=== PATIENT | male | born 1980 | race Caucasian/White ===

== ENCOUNTER 2019-10-22 00:16 | Emergency (ER) | payer BC ==
[~2019-10-22] VITALS: Ht 182.9 cm; Wt 142.9 kg
[~2019-10-22 00:16] MED LIST: ACETAMINOPHEN-1 EAC1 PO; BACTRIM DS TAB1 EACH PO; BACTROBAN CREAM30 G1 TOP; BACTROBAN NASAL1 GM NASAL; KEFLEX500 M1 PO; NYSTATIN1 EAC9 TOP; ONDANSETRON HCL4 M2 PO; PROTONIX 20 MG20 M1 PO
[2019-10-22 01:03] LABS: HEMATOCRIT 44.9 % (42.0-52.0); HEMOGLOBIN 15.6 gm/dL (14.0-18.0); MCH 30.9 pg (26.0-34.0); MCHC 34.7 g/dL (28.0-37.0); NUCLEATED RBCS 0 /100WBC; PLATELET COUNT* 222 thou/uL (150-400); RBC 5.04 mil/uL (4.50-6.00); RDW-CV 12.5 % (10.5-14.5); WBC 12.5 thou/uL (4.0-11.0)
[2019-10-22 01:08] LABS: CALCIUM 8.7 mg/dL (8.5-10.1); CREATININE 1.3 mg/dL (0.6-1.3); POTASSIUM 3.7 mmol/L (3.5-5.1)
[2019-10-22 01:12] LABS: ALBUMIN 3.7 g/dL (3.4-5.0); TOTAL BILIRUBIN 1.5 mg/dL (<0.1-1.0); TOTAL PROTEIN 7.3 g/dL (6.4-8.2)
[2019-10-22 01:44] LABS: ABSOLUTE LYMPHOCYTES 0.5 thou/uL (0.8-5.3); ABSOLUTE MONOCYTES 0.4 thou/uL (0.0-1.2); ABSOLUTE NEUTROPHILS 11.6 thou/uL (1.6-8.1)
[2019-10-22 01:45] LABS: PLATELET ESTIMATE ADEQUATE
[2019-10-22] MEDS ORDERED: HYDROCODON-ACE1 EAC7 PO (02:11)
[2019-10-22] MEDS ORDERED: IBUPROFEN 800800 MG PO (02:11)
[2019-10-22] MEDS ORDERED: DOXYCYCLINE 10100 MG PO (02:11)
[2019-10-22 03:25] VITALS: BP 129/82
== END 2019-10-22 03:28 | disposition still patient (30) ==
LOC: M.ERS 00:16
PROVIDERS: Personal Emergency Response Attendant
DX: L03.116 Cellulitis of left lower limb (principal); R50.9 Fever, unspecified

== ENCOUNTER 2019-10-25 12:43 | Inpatient (IN) | payer BC ==
[~2019-10-25] VITALS: Ht 182.9 cm; Wt 145.1 kg
[~2019-10-25 12:43] MED LIST changes: +DOXYCYCLINE 10100 MG PO; +HYDROCODON-ACE1 EAC7 PO; +IBUPROFEN 800800 MG PO
[2019-10-25 12:54] VITALS: BP 143/72
[2019-10-25] MEDS ORDERED: NEXIUM 40 MG CA40 M1 PO (12:57)
[2019-10-25 13:33] LABS: ABSOLUTE EOSINOPHILS 0.1 thou/uL (0.0-0.7); ABSOLUTE LYMPHOCYTES 1.7 thou/uL (0.8-5.3); ABSOLUTE MONOCYTES 0.3 thou/uL (0.0-1.2); ABSOLUTE NEUTROPHILS 1.9 thou/uL (1.6-8.1); BASOPHILS 0.6 %; EOSINOPHILS 1.6 %; HEMATOCRIT 45.5 % (42.0-52.0); HEMOGLOBIN 16.2 gm/dL (14.0-18.0); LYMPHOCYTES 41.6 %; MCH 31.7 pg (26.0-34.0); MCHC 35.7 g/dL (28.0-37.0); MCV 88.7 fL (80.0-100.0); MONOCYTES 7.9 %; MPV 8.9 fl. (7.2-11.1); NUCLEATED RBCS 0 /100WBC; PLATELET COUNT* 233 thou/uL (150-400); POLYS 48.3 %; RBC 5.12 mil/uL (4.50-6.00); RDW-CV 12.7 % (10.5-14.5)
[2019-10-25 13:40] LABS: CALCIUM 8.9 mg/dL (8.5-10.1); CREATININE 1.1 mg/dL (0.6-1.3); POTASSIUM 3.4 mmol/L (3.5-5.1)
[2019-10-25 13:45] LABS: ALBUMIN 3.5 g/dL (3.4-5.0); TOTAL BILIRUBIN 0.8 mg/dL (<0.1-1.0); TOTAL PROTEIN 7.8 g/dL (6.4-8.2)
[2019-10-25 15:11] VITALS: BP 142/69
[2019-10-25 15:30] VITALS: BP 119/70
--- NOTE | 2019-10-25 17:18 | NUR ---
PATIENT ARRIVED FROM ER THIS AFTERNOON. HISTORY, ASSESSMENT AND VITALS COMPLETED AND DOCUMENTED. PATIENT HAS CELLULITIS TO LEFT LOWER EXTREMITY. PATIENT HAS COMPLAINTS OF CRAMPING PAIN WHEN AMBULATING, DENIES NEED FOR MEDICATION. PATIENT DENIES ANY NEEDS AT THIS TIME. CALL LIGHT WITHIN REACH.
[2019-10-26 03:36] VITALS: BP 110/61
[2019-10-26 04:04] LABS: ABSOLUTE EOSINOPHILS 0.1 thou/uL (0.0-0.7); ABSOLUTE LYMPHOCYTES 1.8 thou/uL (0.8-5.3); ABSOLUTE MONOCYTES 0.4 thou/uL (0.0-1.2); ABSOLUTE NEUTROPHILS 2.3 thou/uL (1.6-8.1); BASOPHILS 0.7 %; EOSINOPHILS 2.7 %; HEMATOCRIT 38.6 % (42.0-52.0); LYMPHOCYTES 39.5 %; MCH 31.6 pg (26.0-34.0); MCHC 35.6 g/dL (28.0-37.0); MCV 88.8 fL (80.0-100.0); MPV 8.8 fl. (7.2-11.1); NUCLEATED RBCS 0 /100WBC; PLATELET COUNT* 214 thou/uL (150-400); POLYS 49.1 %; RBC 4.34 mil/uL (4.50-6.00); RDW-CV 12.7 % (10.5-14.5); WBC 4.7 thou/uL (4.0-11.0)
[2019-10-26 04:18] LABS: CALCIUM 7.9 mg/dL (8.5-10.1); CREATININE 0.9 mg/dL (0.6-1.3); POTASSIUM 3.5 mmol/L (3.5-5.1)
[2019-10-26 04:20] LABS: HEMOGLOBIN 13.7 gm/dL (14.0-18.0)
--- NOTE | 2019-10-26 05:20 | NUR ---
PT ALERT AND ORIENTED X4. CELLULITIS TO LLE. VANCOMYCIN GIVEN PER DEC. PT C/O PAIN IN LLE WHEN AMBULATING. CALL LIGHT AND FREQUENTLY USED ITEMS IN REACH. BED ALARM ON FOR SAFETY. HOURLY ROUNDING IN PROGRESS, WILL CONTINUE TO MONITOR.
[2019-10-26 07:35] VITALS: BP 120/72
[2019-10-26 17:10] VITALS: BP 117/62
--- NOTE | 2019-10-26 18:47 | NUR ---
PATIENT RESTING IN RECLINER. PATIENT IS UP AD STEFANIA IN ROOM. PATIENT DENIES ANY NEED FOR PAIN MEDICATION. DOUBLE LAYER TUBIGRIP APPLIED PER DR FRANCIS. PATIENT HAS GOOD APPETITE. PATIENT DENIES ANY NEEDS AT THIS TIME. CALL LIGHT WITHIN REACH.
[2019-10-27] VITALS: BP 116/72
--- NOTE | 2019-10-27 05:23 | NUR ---
PATIENT SLEPT WELL DURING THE NIGHT. PT UP AD STEFANIA TO THE BATHROOM. PT DENIES PAIN/NAUSEA. PT WITH ANTIBIOTICS INFUSING PER DR ORDER. PT WITH TUBIGRIP ON LT LOWER EXTREMITY. FREQUENTLY USED ITEMS AND CALL LIGHT WITHIN REACH. SIDERAILS UPX2. WILL CONTINUE TO MONITOR.
--- NOTE | 2019-10-27 07:20 | CON ---
[address] [address] CONSULTATION Name: LAURAFAN PACHECO Room: [address] IN M.R.#: [id number] Admission: 10/25/19 Attend Phys: Jc Hernandez MD Discharge: Date of : 82 Report #: [id number] THIS REPORT FOR: //name// CC: Jc Hernandez [facility] DATE OF SERVICE: 10/26/2019 INFECTIOUS DISEASE CONSULTATION ATTENDING PHYSICIAN: Jc Hernandez MD REASON FOR EVALUATION: Left lower extremity inflammatory eruption, likely multifactorial including a component of skin and soft tissue infection with cellulitis. HISTORY OF PRESENT ILLNESS: Chart reviewed, the patient examined. A 39-year-old male without significant medical history, although suspected venous stasis insufficiency of lower extremities, who noted onset of inflammatory rash with associated pain, left lower extremity, previous 3-4 days, had been evaluated as an outpatient, placed on doxycycline and felt like it was improving, had a negative venous Doppler of the lower extremity. Did have some chills at the onset, mild headaches. Denies significant pulmonary- or gastrointestinal-related complaints. ALLERGIES: PENICILLINS. CURRENT MEDICINES: Include pantoprazole, vancomycin, enoxaparin, fentanyl, hydralazine, ondansetron as needed. PAST MEDICAL HISTORY: Admits to reflux, previous history of lower extremity swelling, right ankle fracture. SOCIAL HISTORY: Nonsmoker. No ethanol. FAMILY HISTORY: Noncontributory. REVIEW OF SYSTEMS: Otherwise, unremarkable 10-point review of systems with exception of the above. PHYSICAL EXAMINATION: GENERAL: Alert, cooperative, appropriate. He is well nourished. He has [id number] distress. VITAL SIGNS: T-max overnight 100.8, more recently 98.2; pulse 74, respirations 16; blood pressure 120/72. SKIN: Warm, [place] [address] CONSULTATION Name: FAN SANCHEZ Room: [address]#: [id number] Admission: 10/25/19 Attend Phys: Jc Hernandez MD Discharge: Date of : 82 Report #: [id number] HEENT: Normocephalic. Extraocular muscles are intact. NECK: Supple. LUNGS: Clear to auscultation bilaterally. HEART: Regular. I do not appreciate a murmur. ABDOMEN: Obese, soft, nontender. EXTREMITIES: Bilateral lower extremities have clear edema. There are changes suggesting chronic venous stasis insufficiency with some underlying dermatitis as well. There is a painful erythematous-type eruption, most notable dependent area on the calf posteriorly. There are no bullous lesions, no ulcers at this point. GENITOURINARY AND RECTAL: Deferred. LABORATORY DATA: Blood cultures sterile thus far. CBC: White count of 4.0, H and H 16.2 and 45.5, platelets of 233. Electrolytes: Sodium 142, potassium 3.4, chloride 106, bicarbonate is 28, anion gap of 8, BUN and creatinine 16 and 1.1, glucose of 124. LFTs unremarkable. Albumin of 3.5, total protein 7.8, estimated GFR of 75. CRP of 95.7. Lactic acid 1.3 on admission. Blood cultures are sterile thus far. ASSESSMENT AND PLAN: Left lower extremity inflammatory eruption, component of skin and soft tissue infection with cellulitis. We will continue the vancomycin as prescribed, see how he does clinically. I certainly encouraged him to elevate while in bed supine. Also, we will try to initiate some compressive therapy, see how he does clinically over the next 24-48 hours, and likely transition to oral antibiotics prior to discharge. <ELECTRONICALLY SIGNED> By: Yobany Wyman MD 10/27/19 0720 [id number] Wyman MD /nt
[2019-10-27 08:09] VITALS: BP 124/75
--- NOTE | 2019-10-27 12:58 | NUR ---
Nutrition: Pt admitted with cellulitis on LLE. Regular diet ordered. Labs: BG 99, albumin 3.5. Wt: 320#. Assessed for high BMI. Unsure of pt's po intake. Please encourage good meal intake and good protein intake. Recommend MVI. No other nutrition concerns at this time. Mild risk.
[2019-10-27 15:30] VITALS: BP 130/82
--- NOTE | 2019-10-27 15:30 | NUR ---
SW met with pt to complete initial assessment, introduce self, and SW role. Pt alert, oriented, pleasant. Pt lives at home with . Pt is independent and does not anticipate any dc needs at this time. Pt said he thinks he should be able to dc tomorrow and that he was told he would change to oral abx at dc.
--- NOTE | 2019-10-27 18:09 | NUR ---
PATIENT AWAKE IN CHAIR. PATIENT AMBULATED IN ROOM AND TO CHAIR THROUGHOUT SHIFT. ALL SAFETY MEASURES MAINTAINED. PATIENT DENIES FURTHER NEEDS AT THIS TIME.
[2019-10-27 22:00] VITALS: BP 114/70
--- NOTE | 2019-10-28 06:16 | NUR ---
PATIENT SLEPT MOST OF THE NIGHT. IV REMAINS SALINE LOCKED. IV VANC WAS GIVEN ORDERED. CELLULITIS TO LEFT LOWER LEG CONTINUES TO IMPROVE. PATIENT IS HOPING TO GO HOME TODAY. WILL CONTINUE TO MONITOR.
[2019-10-28 07:40] VITALS: BP 105/55
[2019-10-28] MEDS ORDERED: MINOCYCLINE HC100 M2 PO (10:40)
[2019-10-28] MEDS ORDERED: NORCO 5-325 TA1 EAC1 PO (12:00)
[2019-10-28 12:39] VITALS: BP 105/55
--- NOTE | 2019-10-28 13:38 | NUR ---
1300 PATIENT AMBULATING IN ROOM. ALL SAFETY MEASURES MAINTAINED. DISCHARGE PAPERWORK REVIEWED WITH PATIENT AND PATIENT'S . PATIENT AND PATIENT'S DENY FURTHER NEEDS OR QUESTIONS. DISCHARGE PAPERWORK AND PRESCRIPTIONS GIVEN TO PATIENT. CONFIRMED WITH DR. FRANCIS PATIENT MAY DISCHARGE HOME TODAY.
== END 2019-10-28 13:10 | disposition home or self-care (01) | DRG 603 ==
LOC: M.ERS 12:43 → M.TBA-ER 13:09 → M.3W 15:35
PROVIDERS: Emergency Medicine; ADMIT Internal Medicine
DX: L03.116 Cellulitis of left lower limb (principal); Z88.0 Allergy status to penicillin; K21.9 Gastro-esophageal reflux disease without esophagitis; Z87.81 Personal history of (healed) traumatic fracture; Z23 Encounter for immunization; Z79.899 Other long term (current) drug therapy

== ENCOUNTER 2020-05-01 19:01 | Emergency (ER) | payer BC ==
[~2020-05-01] VITALS: Ht 182.9 cm; Wt 86.2 kg
[~2020-05-01 19:01] MED LIST changes: +MINOCYCLINE HC100 M2 PO; +NEXIUM 40 MG CA40 M1 PO; +NORCO 5-325 TA1 EAC1 PO
[2020-05-01 20:03] LABS: ABSOLUTE BASOPHILS 0.1 thou/uL (0.0-0.2); ABSOLUTE EOSINOPHILS 0.1 thou/uL (0.0-0.7); ABSOLUTE LYMPHOCYTES 2.5 thou/uL (0.8-5.3); ABSOLUTE MONOCYTES 0.5 thou/uL (0.0-1.2); ABSOLUTE NEUTROPHILS 6.4 thou/uL (1.6-8.1); BASOPHILS 0.8 %; EOSINOPHILS 1.3 %; HEMATOCRIT 45.3 % (42.0-52.0); HEMOGLOBIN 15.8 gm/dL (14.0-18.0); MCH 31.6 pg (26.0-34.0); MCHC 34.9 g/dL (28.0-37.0); MCV 90.4 fL (80.0-100.0); MONOCYTES 5.3 %; MPV 8.6 fl. (7.2-11.1); NUCLEATED RBCS 0 /100WBC; PLATELET COUNT* 283 thou/uL (150-400); POLYS 66.6 %; RBC 5.01 mil/uL (4.50-6.00); RDW-CV 12.7 % (10.5-14.5); WBC 9.7 thou/uL (4.0-11.0)
[2020-05-01 20:08] LABS: CALCIUM 8.9 mg/dL (8.5-10.1); CREATININE 1.2 mg/dL (0.6-1.3); POTASSIUM 3.8 mmol/L (3.5-5.1)
[2020-05-01] MEDS ORDERED: HYDROCODON-ACE1 EAC8 PO (20:23)
[2020-05-01] MEDS ORDERED: CLEOCIN HCL300 MG PO (20:23)
[2020-05-01 20:33] VITALS: BP 106/79
== END 2020-05-01 20:34 | disposition home or self-care (01) ==
LOC: M.ERS 19:01
PROVIDERS: Emergency Medicine
DX: L03.311 Cellulitis of abdominal wall (principal); K21.9 Gastro-esophageal reflux disease without esophagitis; Z88.0 Allergy status to penicillin

== ENCOUNTER 2020-09-18 19:04 | Emergency (ER) | payer BC ==
[~2020-09-18] VITALS: Ht 182.9 cm; Wt 136.1 kg
[~2020-09-18 19:04] MED LIST changes: +CLEOCIN HCL300 MG PO; +HYDROCODON-ACE1 EAC8 PO
[2020-09-18] MEDS ORDERED: CILOXAN5 ML OPHTHALMIC (19:46)
[2020-09-18] MEDS ORDERED: HYDROCODON-ACE1 EAC8 PO (19:46)
[2020-09-18 19:59] VITALS: BP 143/72
== END 2020-09-18 20:00 | disposition home or self-care (01) ==
LOC: M.ERS 19:04
DX: S05.01XA Injury of conjunctiva and corneal abrasion without foreign body, right eye, initial encounter (principal); Z88.0 Allergy status to penicillin; X58.XXXA Exposure to other specified factors, initial encounter; Y93.9 Activity, unspecified; Y92.89 Other specified places as the place of occurrence of the external cause; Y99.8 Other external cause status

== ENCOUNTER 2021-01-04 21:21 | Inpatient (IN) | payer BC ==
[~2021-01-04] VITALS: Ht 182.9 cm; Wt 142.4 kg
[~2021-01-04 21:21] MED LIST changes: +CILOXAN5 ML OPHTHALMIC
[2021-01-04 21:36] VITALS: BP 116/71
[2021-01-04] MEDS ORDERED: ADIPEX-P37.5 MG PO ×2 (21:39)
[2021-01-04] MEDS ORDERED: NEXIUM40 MG PO (21:40)
[2021-01-04 22:44] LABS: HEMOGLOBIN 15.2 gm/dL (14.0-18.0); MCH 29.9 pg (26.0-34.0); MCHC 33.8 g/dL (28.0-37.0); MCV 88.3 fL (80.0-100.0); MPV 7.7 fl. (7.2-11.1); NUCLEATED RBCS 0 /100WBC; PLATELET COUNT* 225 thou/uL (150-400); RBC 5.09 mil/uL (4.50-6.00); RDW-CV 12.8 % (10.5-14.5); WBC 19.8 thou/uL (4.0-11.0)
[2021-01-04 22:58] LABS: CALCIUM 9.2 mg/dL (8.5-10.1); CREATININE 1.3 mg/dL (0.6-1.3); POTASSIUM 3.8 mmol/L (3.5-5.1)
[2021-01-04 23:03] LABS: ALBUMIN 3.8 g/dL (3.4-5.0); TOTAL BILIRUBIN 2.6 mg/dL (<0.1-1.0); TOTAL PROTEIN 7.4 g/dL (6.4-8.2); URIC ACID* 7.5 mg/dL (2.6-7.2)
[2021-01-04 23:51] LABS: ABSOLUTE EOSINOPHILS 0.2 thou/uL (0.0-0.7); ABSOLUTE LYMPHOCYTES 1.4 thou/uL (0.8-5.3); ABSOLUTE NEUTROPHILS 17.2 thou/uL (1.6-8.1)
[2021-01-04 23:52] LABS: CLUMPED PLTS FEW; PLATELET ESTIMATE ADEQUATE; TOXIC GRANULATION 1+
[2021-01-05 01:00] VITALS: BP 112/53
[2021-01-05 01:04] LABS: INR 1.1; PROTIME 11.4 Seconds (9.20-11.50)
[2021-01-05 01:10] VITALS: BP 108/59
[2021-01-05 07:10] VITALS: BP 100/54
[2021-01-05 15:53] VITALS: BP 106/60
[2021-01-05 21:31] VITALS: BP 112/54
[2021-01-06 04:05] LABS: GLYCOHEMOGLOBIN (HGB A1C) 5.4 % (4.8-5.6)
[2021-01-06 04:32] LABS: HEMATOCRIT 37.3 % (42.0-52.0); MCH 30.1 pg (26.0-34.0); MCHC 33.5 g/dL (28.0-37.0); MPV 8.9 fl. (7.2-11.1); RBC 4.15 mil/uL (4.50-6.00); RDW-CV 13.1 % (10.5-14.5); WBC 14.6 thou/uL (4.0-11.0)
[2021-01-06 04:54] LABS: HEMOGLOBIN 12.5 gm/dL (14.0-18.0)
[2021-01-06 04:55] LABS: ALBUMIN 2.5 g/dL (3.4-5.0); CALCIUM 7.6 mg/dL (8.5-10.1); POTASSIUM 3.5 mmol/L (3.5-5.1); TOTAL BILIRUBIN 0.6 mg/dL (<0.1-1.0); TOTAL PROTEIN 5.7 g/dL (6.4-8.2)
[2021-01-06 08:00] VITALS: BP 109/72
[2021-01-06 16:40] VITALS: BP 125/71
[2021-01-06 20:17] VITALS: BP 120/71
[2021-01-07 06:25] LABS: HEMATOCRIT 41.1 % (42.0-52.0); HEMOGLOBIN 13.8 gm/dL (14.0-18.0); MCH 30.2 pg (26.0-34.0); MCHC 33.5 g/dL (28.0-37.0); MCV 90.3 fL (80.0-100.0); RBC 4.55 mil/uL (4.50-6.00); RDW-CV 13.2 % (10.5-14.5)
[2021-01-07 06:51] LABS: ALBUMIN 2.9 g/dL (3.4-5.0); CALCIUM 8.5 mg/dL (8.5-10.1); CREATININE 1.2 mg/dL (0.6-1.3); MAGNESIUM 2.2 mg/dL (1.8-2.4); POTASSIUM 3.6 mmol/L (3.5-5.1); TOTAL BILIRUBIN 0.6 mg/dL (<0.1-1.0)
[2021-01-07 08:00] VITALS: BP 109/69
[2021-01-07 16:00] VITALS: BP 133/84
== END 2021-01-07 20:15 | disposition left against medical advice (07) | DRG 872 ==
LOC: M.ERS 21:21 → M.ORTHSURG 01-05 00:16 → M.TBA-ER 01-05 00:16 → M.ORTHSURG 01-05 01:14
PROVIDERS: Internal Medicine; Personal Emergency Response Attendant; ADMIT Internal Medicine; ATTEND Internal Medicine
DX: A41.9 Sepsis, unspecified organism (principal); L03.116 Cellulitis of left lower limb; E80.6 Other disorders of bilirubin metabolism; R73.9 Hyperglycemia, unspecified; Z20.822 Contact with and (suspected) exposure to COVID-19; Z88.0 Allergy status to penicillin; Z79.899 Other long term (current) drug therapy; Z53.29 Procedure and treatment not carried out because of patient's decision for other reasons